=== PATIENT | female | born 1975 | race Caucasian/White ===

== ENCOUNTER 2016-06-29 00:17 | Observation (INO) | payer BC ==
[2016-06-29 00:33] VITALS: BP 119/68; PULSE 72; RESP 16; TEMP 97.1; O2SAT 99
[2016-06-29] MEDS ORDERED: Sodium Chloride 0.9% 1,000 ML IV STA (01:45)
[2016-06-29] MEDS ORDERED: Iohexol 240 (50 ml) PO ONE (01:45)
[2016-06-29] MEDS ORDERED: Iohexol 240 (50 ml) ONE (01:45)
[2016-06-29 02:03] LABS: BASO # 0.1 K/uL (0.0-0.2); EOS # 0.3 K/uL (0.0-0.7); EOS % 4.7 % (0.0-4.0); HEMATOCRIT 37.8 % (34.0-47.0); LYMPH # 2.1 K/uL (1.0-4.3); LYMPH % 37.4 % (20.0-40.0); MEAN CELL VOLUME 88.2 fl (81.0-99.0); MEAN CORPUSCULAR HEMOGLOBIN 30.9 pg (27.0-31.0); MEAN PLATELET VOLUME 8.9 fl (7.2-11.7); MONO # 0.6 K/uL (0.0-0.8); MONO % 10.3 % (0.0-10.0); NEUT # 2.6 K/uL (1.8-7.0); NEUT % 46.6 % (50.0-75.0); NRBC % 0.2 % (0.0-0.0); RED CELL DISTRIBUTION WIDTH 13.5 % (11.5-14.5); WHITE BLOOD COUNT 5.5 K/uL (4.8-10.8)
--- NOTE | 2016-06-29 02:11 | ED PDOC ---
HPI: General Adult Time Seen by Provider: 06/29/16 00:55 Chief Complaint (Nursing): Abdominal Pain Chief Complaint (Provider): weakness, nausea History Per: Patient History/Exam Limitations: no limitations Onset/Duration Of Symptoms: Hrs Have you had recent travel within the past 21 days to any of the following countries: [place], [place], [place] or [place]?: Yes Current Symptoms Are (Timing): Still Present Additional Complaint(s): 41yo female with no PMHx presents to the ED with c/o weakness, nausea, abdominal pain since this morning with some SOB. Patient reports she returned from [place] 4 days prior and thinks she may have at something bad because she had diarrhea for 2 days that has since resolved. Notes chills. Denies fever, vomiting, back pain, urine issues, leg swelling. Past Medical History Reviewed: Historical Data, Nursing Documentation, Vital Signs Vital Signs: Last Vital Signs Temp 97.1 F L 06/29/16 00:31 Pulse 72 06/29/16 00:31 Resp 16 06/29/16 00:31 BP 119/68 06/29/16 00:31 Pulse Ox 99 06/29/16 04:53 - Medical History PMH: No Chronic Diseases - Surgical History Surgical History: No Surg Hx - Family History Family History: States: No Known Family Hx - Social History Current smoker - smoking cessation education provided: No Alcohol: None Drugs: Denies - Home Medications Home Medications: Ambulatory Orders Medication Instructions Recorded No Known Home Med 06/29/16 - Allergies Allergies/Adverse Reactions: Allergies Allergy/AdvReac Type Severity Reaction Status Date / Time No Known Allergies Allergy Verified 06/29/16 00:30 Review of Systems ROS Statement: Except As Marked, All Systems Reviewed And Found Negative Constitutional: Positive for: Chills, Weakness. Negative for: Fever Cardiovascular: Positive for: Other (no leg swelling ) Respiratory: Positive for: Shortness of Breath Gastrointestinal: Positive for: Nausea, Abdominal Pain. Negative for: Vomiting Genitourinary Female: Negative for: Dysuria, Frequency, Incontinence, Hematuria Musculoskeletal: Negative for: Back Pain Physical Exam - Reviewed Nursing Documentation Reviewed: Yes Vital Signs Reviewed: Yes - Physical Exam Appears: Positive for: Well, No Acute Distress Head Exam: Positive for: ATRAUMATIC, NORMAL INSPECTION, NORMOCEPHALIC Skin: Positive for: Normal Color, Warm, Dry Eye Exam: Positive for: Normal appearance, EOMI, PERRL ENT: Positive for: Normal ENT Inspection Neck: Positive for: Normal, Painless ROM, Supple Cardiovascular/Chest: Positive for: Regular Rate, Rhythm. Negative for: Murmur , Tachycardia Respiratory: Positive for: Normal Breath Sounds. Negative for: Wheezing, Respiratory Distress Gastrointestinal/Abdominal: Positive for: Bowel Sounds, Soft, Tenderness ( diffuse, worse to periumbilical region ) Back: Positive for: Normal Inspection. Negative for: L CVA Tenderness, R CVA Tenderness Extremity: Positive for: Normal ROM. Negative for: Deformity, Swelling Neurologic/Psych: Positive for: Alert, Oriented. Negative for: Motor/Sensory Deficits - Laboratory Results Result Diagrams: 06/29/16 01:49 06/29/16 01:49 - ECG O2 Sat by Pulse Oximetry: 99 Pulse Ox Interpretation: Normal (RA) Medical Decision Making Medical Decision Makin: Impression: weakness, nausea, abdominal pain; r/o intra-abdominal abnormality Plan: Morphine 2mg IV, IVF, Zofran 4mg IV CT A/P Labs reassess 0436: CT A/P impression: No acute findings. Appendix is not seen but there is no pericecal inflammatory change to suggest appendicitis. 0450: Patient will be discharged with diagnosis of viral illness, pt feels better and tolerating po.. Advised to return to ED with worsening or concerning symptoms. Scribe Attestation: Documented by Danielle Sen acting as a scribe for Lissett Lubin MD. Provider Scribe Attestation: All medical record entries made by the Scribe were at my direction and personally dictated by me. I have reviewed the chart and agree that the record accurately reflects my personal performance of the history, physical exam, medical decision making, and the department course for this patient. I have also personally directed, reviewed, and agree with the discharge instructions and disposition. Disposition - Clinical Impression Clinical Impression: Abdominal cramps, Viral illness - Patient ED Disposition Is Patient to be Admitted: No Counseled Patient/Family Regarding: Studies Performed, Diagnosis - Disposition Disposition: Routine/Home Disposition Time: 04:50 Condition: GOOD
[2016-06-29 02:43] LABS: BLOOD UREA NITROGEN 14 mg/dl (7-17); CALCIUM 8.9 mg/dL (8.4-10.2); CARBON DIOXIDE 23 mmol/L (22-30); CHLORIDE 105 mmol/L (98-107); GFR AFRICAN-AMERICAN > 60; GLUCOSE,RANDOM 87 mg/dL (65-105); POTASSIUM 4.1 MMOL/L (3.6-5.0); SODIUM 140 mmol/l (132-148); TOTAL PROTEIN 6.8 G/DL (6.3-8.2)
[2016-06-29 02:44] LABS: ALB/GLOB RATIO 1.5 (1.0-2.1); ALKALINE PHOSPHATASE 59 U/L (38-126); ALT/SGPT 41 U/L (9-52); AST/SGOT 27 U/L (14-36); BILIRUBIN,TOTAL 0.6 mg/dl (0.2-1.3); LIPASE 43 U/L (23-300)
[2016-06-29] MEDS ORDERED: Iohexol 300 100 ML IJ ONE (03:52)
[2016-06-29] MEDS ORDERED: Sodium Chloride 0.9% 100 ML ONE (03:52)
--- NOTE | 2016-06-29 09:02 | CT ---
PROCEDURE: CT Abdomen and Pelvis with contrast HISTORY: Abdominal pain COMPARISON: None. TECHNIQUE: Multidetector CT scan of the abdomen and pelvis was performed after intravenous administration of contrast. Oral contrast was administered. Coronal and sagittal reformatted images were obtained. Contrast dose: 96 cc Omnipaque 300 Radiation dose: Total exam DLP = 459.50 mGy-cm. This CT exam was performed using one or more of the following dose reduction techniques: Automated exposure control, adjustment of the mA and/or kV according to patient size, and/or use of iterative reconstruction technique. FINDINGS: LOWER THORAX: There is bibasilar subsegmental atelectasis. LIVER: The liver is normal in size and there is homogeneous enhancement. Tiny hyperdensities in the liver are too small to characterize by CT criteria. GALLBLADDER AND BILE DUCTS: There are no calcified gallstones. PANCREAS: The pancreas is normal in size and there is homogeneous enhancement without ductal dilatation or mass. SPLEEN: The spleen is normal in size and there is homogeneous enhancement without focal mass. ADRENALS: Both adrenal glands are normal in size without discrete nodule. KIDNEYS AND URETERS: Both kidneys are normal in size and there is homogeneous enhancement without hydronephrosis. There is a tiny cortical cyst in the lower pole of the right kidney. VASCULATURE: No evidence of aortic aneurysm. BOWEL: The small bowel loops are normal in caliber. There is moderate amount of stool scattered throughout the colon. There is no bowel dilatation or obstruction. Also noted is fecalization of small bowel contents. APPENDIX: The appendix is not distinctly identified however there are no inflammatory changes in the right lower quadrant. PERITONEUM: No free fluid. No free air. LYMPH NODES: No enlarged lymph nodes. BLADDER: Normal in appearance. REPRODUCTIVE: The uterus is normal in size. There are no adnexal masses. BONES: No acute fracture. OTHER FINDINGS: Incompletely imaged are bilateral retroglandular saline implants which demonstrate partial peripheral rim calcifications. IMPRESSION: 1. No acute abdominal or pelvic abnormality. The appendix is not distinctly identified however no inflammatory changes in the right lower quadrant. 2. Constipation and fecalization of small bowel contents consistent with chronic stasis. A preliminary report was provided by [employer].
== END 2016-06-29 04:50 | disposition home or self-care (01) ==
LOC: H.ER 00:17 → H.EROBSV 03:28
PROVIDERS: ADMIT Emergency Medicine; ATTEND Emergency Medicine
DX: B34.9 Viral infection, unspecified (principal)
CPT/HCPCS: 74177; 80053; 81025; 83690; 85025; 96360; 99282; G0378; J7040; Q9966; Q9967